=== PATIENT | male | born 1960 | race Caucasian/White ===

== ENCOUNTER → 2020-02-11 | Outpatient (CLI) | payer OTHER | END | disposition home or self-care (01) | LOC: PLD 08:06 → LAB SHORT 08:06 | DX: B35.1 Tinea unguium (principal); L57.0 Actinic keratosis | CPT/HCPCS: 88305; 88312 ==

== ENCOUNTER 2020-07-25 08:12 | Emergency (ER) | payer OTHER ==
[~2020-07-25] VITALS: Ht 172.7 cm; Wt 109.3 kg
[2020-07-25 09:21] LABS: BASOPHILS ABSOLUTE AUTO 0.06 K/mm3 (0.00-0.23); BASOPHILS PERCENT AUTO 1 % (0-2); EOSINOPHILS PERCENT AUTO 2 % (0-6); Hematocrit 44.1 % (37.0-53.0); Hemoglobin 14.1 g/dL (13.5-17.5); IMMATURE GRAN ABSOLUTE AUTO 0.04 K/mm3 (0.00-0.10); IMMATURE GRAN PERCENT AUTO 0 % (0-1); LYMPHOCYTES ABSOLUTE AUTO 1.62 K/mm3 (0.84-5.20); LYMPHOCYTES PERCENT AUTO 12 % (21-46); MONOCYTES ABSOLUTE AUTO 0.71 K/mm3 (0.16-1.47); MONOCYTES PERCENT AUTO 5 % (4-13); Mean Corpuscular HGB 29.8 pg (26.0-34.0); Mean Corpuscular Volume 93 fL (80-100); Mean Platelet Volume 10.7 fL (9.1-12.4); NEUTROPHILS ABSOLUTE AUTO 10.67 K/mm3 (1.96-9.15); NEUTROPHILS PERCENT AUTO 80 % (41-73); Platelet Count 339 K/mm3 (150-400); RDW Coefficient Variation 13.2 % (11.7-14.2); RDW Standard Deviation 45.1 fL (35.1-46.3); Red Blood Cell Count 4.73 M/mm3 (4.30-5.90)
[2020-07-25 09:42] LABS: Alanine Aminotransfer (ALT/SGP 49 U/L (12-78); Albumin, Blood 3.8 g/dL (3.4-5.0); Albumin/Globulin Ratio 1.1 (0.8-1.8); Alk Phos 134 U/L (50-136); Anion Gap 4 mmol/L (6-16); Aspartate Aminotrans (AST/SGOT 20 U/L (12-37); Bilirubin, Total 0.6 mg/dL (0.1-1.0); Blood Urea Nitrogen 14 mg/dL (8-24); Bun/Creatinine Ratio 15.3 (12.0-20.0); CO2, Blood 30 mmol/L (21-32); Chloride, Blood 108 mmol/L (98-108); Creatinine, Blood 0.91 mg/dL (0.60-1.20); Globulin, Blood 3.5 g/dL (2.2-4.0); Glomerular Filtration Rate >60 (60-); Glucose, Blood 117 mg/dL (70-99); Potassium, Blood 4.6 mmol/L (3.5-5.5); Sodium, Blood 142 mmol/L (136-145); Total Protein, Blood 7.3 g/dL (6.4-8.2); Troponin I 0.032 ng/mL (0.000-0.040)
== END 2020-07-25 09:56 | disposition home or self-care (01) ==
LOC: ER 08:12
PROVIDERS: Emergency Medicine
DX: J44.1 Chronic obstructive pulmonary disease with (acute) exacerbation (principal); I10 Essential (primary) hypertension; E66.9 Obesity, unspecified
CPT/HCPCS: 36415; 71045; 80053; 83880; 84484; 85025; 93005; 93010; 99285-25; J1940

== ENCOUNTER 2020-10-26 09:07 | Day surgery (SDC) | payer OTHER ==
[~2020-10-26] VITALS: Ht 175.3 cm; Wt 111.0 kg
[~2020-10-26 09:07] MED LIST: CARV6.25 PO; FURO40 PO; LISI20 PO
--- NOTE | 2020-10-26 12:50 | NUR ---
[facility]. A&O. right radial site soft and nontender. c/o sorness of right arm, better than during procedure
--- NOTE | 2020-10-26 16:15 | NUR ---
PATIENT VERBALIZED UNDERSTANDING OF DISCHARGE INSTRUCTIONS AND PRECAUTIONS. AMBULATED TO REST ROOM INDEPENDENTLY. TR BAND REMOVED. SITE SOFT AND NONTENDER. CLOTH DOT DRESSING PLACED. WRIST BOARD IN PLACE. ARM SLING IN PLACE. PATIENT TRANSFERRED TO WAITING CAR FOR RIDE HOME VIA WHEELCHAIR.
[2021-01-19] MEDS ORDERED: FLUT1DIS2 INH (11:20)
[2021-01-19] MEDS ORDERED: TIOT18 INH (11:20)
[2021-01-19] MEDS ORDERED: CYCL10 PO (11:20)
[2021-01-19] MEDS ORDERED: PRED1 (11:20)
[2021-01-19] MEDS ORDERED: FURO20 PO (11:21)
== END 2020-10-26 16:15 | disposition home or self-care (01) ==
LOC: MHTC 09:07
DX: I50.9 Heart failure, unspecified (principal); I20.9 Angina pectoris, unspecified; Z88.6 Allergy status to analgesic agent
CPT/HCPCS: 76937; 93005; 93010; 93460; 99152; 99153; C1769; C1894; J1644; J2250; J3010; J7030; J7050; Q9967

== ENCOUNTER 2021-01-19 12:09 | Inpatient (IN) | payer OTHER, MEDICARE ==
[~2021-01-19] VITALS: Ht 172.7 cm; Wt 108.0 kg
[~2021-01-19 12:09] MED LIST changes: +CYCL10 PO; +FLUT1DIS2 INH; +FURO20 PO; +PRED1; +TIOT18 INH
[2021-01-19 13:43] LABS: BASOPHILS ABSOLUTE AUTO 0.09 K/mm3 (0.00-0.23); BASOPHILS PERCENT AUTO 1 % (0-2); EOSINOPHILS PERCENT AUTO 1 % (0-6); Hematocrit 43.8 % (37.0-53.0); Hemoglobin 14.5 g/dL (13.5-17.5); IMMATURE GRAN ABSOLUTE AUTO 0.11 K/mm3 (0.00-0.10); IMMATURE GRAN PERCENT AUTO 1 % (0-1); LYMPHOCYTES ABSOLUTE AUTO 3.89 K/mm3 (0.84-5.20); LYMPHOCYTES PERCENT AUTO 20 % (21-46); MONOCYTES ABSOLUTE AUTO 1.14 K/mm3 (0.16-1.47); MONOCYTES PERCENT AUTO 6 % (4-13); Mean Corpuscular HGB 30.3 pg (26.0-34.0); Mean Corpuscular HGB Conc 33.1 g/dL (31.5-36.5); Mean Corpuscular Volume 92 fL (80-100); Mean Platelet Volume 10.6 fL (9.1-12.4); NEUTROPHILS ABSOLUTE AUTO 14.38 K/mm3 (1.96-9.15); NEUTROPHILS PERCENT AUTO 73 % (41-73); Platelet Count 368 K/mm3 (150-400); RDW Coefficient Variation 14.9 % (11.7-14.2); RDW Standard Deviation 49.9 fL (35.1-46.3); Red Blood Cell Count 4.78 M/mm3 (4.30-5.90); White Blood Cell Count 19.71 K/mm3 (4.00-11.30)
[2021-01-19 14:13] LABS: Alanine Aminotransfer (ALT/SGP 57 U/L (12-78); Albumin, Blood 3.6 g/dL (3.4-5.0); Albumin/Globulin Ratio 1.1 (0.8-1.8); Alk Phos 106 U/L (50-136); Anion Gap 6 mmol/L (6-16); Aspartate Aminotrans (AST/SGOT 29 U/L (12-37); Bilirubin, Total 0.7 mg/dL (0.1-1.0); Blood Urea Nitrogen 28 mg/dL (8-24); CO2, Blood 25 mmol/L (21-32); Calcium, Blood 8.7 mg/dL (8.5-10.1); Chloride, Blood 110 mmol/L (98-108); Creatinine, Blood 1.22 mg/dL (0.60-1.20); Globulin, Blood 3.2 g/dL (2.2-4.0); Glomerular Filtration Rate >60 (60-); Glucose, Blood 112 mg/dL (70-99); Magnesium, Blood 2.8 mg/dL (1.6-2.4); Sodium, Blood 141 mmol/L (136-145); Total Protein, Blood 6.8 g/dL (6.4-8.2); Troponin I <0.015 ng/mL (0.000-0.040)
[2021-01-19] MEDS ORDERED: CARVEDILOL6.25 MG PO (15:26)
[2021-01-19] MEDS ORDERED: FLUTICASONE-SA1 EAC9 INH (15:27)
--- NOTE | 2021-01-19 17:50 | NUR ---
PT ARRIVED IN THE UNIT VIA STRETCHER FROM ERD REPORT RECEIVED FORTINO MALIK RN, PT IS HERE FOR NEW ONSET OF AFIB RVR, PT WAS STARTED ON AMIODARONE GTT WITH NO BOLUS, VITALS HRR AFIB 120'S, BP SYSTOLIC 115'S, SATS ABOVE 95% ON RA, AFEBRILE. PT IS A SBA ASSISTS FOR TRANSFERS WAS ABLE TO TRANSFER FROM STRETCHER TO BED WITH NO ISSUES. PT DENIES ANY CHEST PAIN/PRESSURE, HAS SOME CHRONIC BACK PAIN AND IS FOR MRI PROCEDURE TO BE SCHEDULED. NO ISSUES REPORTED AT THIS TIME, PT RESTING IN BED, ALERT AND COHERENT AT BASELINE, ABLE TO MAKE NEEDS KNOWN, CALL LIGHTS IN REACH WILL MONITOR
--- NOTE | 2021-01-19 22:24 | NUR ---
THIS LN DECREASE AMIOADARONE GTT 33.3ML/HR TO 16.7ML/HR PER PROTOCOL AND PT. ORDERS AT 10:22PM 6HRS AFTER INITIATION.
[2021-01-20 03:50] LABS: BASOPHILS ABSOLUTE AUTO 0.08 K/mm3 (0.00-0.23); BASOPHILS PERCENT AUTO 1 % (0-2); EOSINOPHILS ABSOLUTE AUTO 0.16 K/mm3 (0.00-0.68); EOSINOPHILS PERCENT AUTO 1 % (0-6); Hematocrit 46.5 % (37.0-53.0); Hemoglobin 15.1 g/dL (13.5-17.5); Mean Corpuscular HGB 30.6 pg (26.0-34.0); Mean Corpuscular HGB Conc 32.5 g/dL (31.5-36.5); Mean Corpuscular Volume 94 fL (80-100); Mean Platelet Volume 10.8 fL (9.1-12.4); Platelet Count 344 K/mm3 (150-400); RDW Coefficient Variation 15.1 % (11.7-14.2); RDW Standard Deviation 51.4 fL (35.1-46.3); Red Blood Cell Count 4.94 M/mm3 (4.30-5.90)
[2021-01-20 03:54] LABS: IMMATURE GRAN PERCENT AUTO 1 % (0-1); LYMPHOCYTES ABSOLUTE AUTO 4.17 K/mm3 (0.84-5.20); LYMPHOCYTES PERCENT AUTO 27 % (21-46); MONOCYTES ABSOLUTE AUTO 0.81 K/mm3 (0.16-1.47); MONOCYTES PERCENT AUTO 5 % (4-13); NEUTROPHILS ABSOLUTE AUTO 10.18 K/mm3 (1.96-9.15); NEUTROPHILS PERCENT AUTO 66 % (41-73)
[2021-01-20 04:10] LABS: Albumin, Blood 3.7 g/dL (3.4-5.0); Albumin/Globulin Ratio 1.1 (0.8-1.8); Bilirubin, Total 0.8 mg/dL (0.1-1.0); Bun/Creatinine Ratio 23.5 (12.0-20.0); Calcium, Blood 8.7 mg/dL (8.5-10.1); Creatinine, Blood 1.36 mg/dL (0.60-1.20); Globulin, Blood 3.5 g/dL (2.2-4.0); Total Protein, Blood 7.2 g/dL (6.4-8.2)
--- NOTE | 2021-01-20 06:17 | NUR ---
PATIENT ARRIVED FROM ED AT 2305, AT BEDSIDE, ABLE TO MAKE NEEDS KNOW, ALERT ORIENTATED SLOW RESPONSES, PATIENT STATED SHE HAD SMOKED HASH PRIOR TO COMING TO HOSPITAL TO HELP WITH HER PAIN, AROUND 0200 PATIENT WAS ABLE TO URINATE WITH QUEING VIA BEDSIDE COMMODE, URINE SAMPLE WAS SENT TO LAB. NORMAL SALINE RUNNING 75ML/HR, PATIENT RESTING IN BED.
--- NOTE | 2021-01-20 06:25 | NUR ---
PATIENT SLEPT MOST OF THE NIGHT, AMIO GTT WAS DECREASE PER NOTE AROUND 1022PM, PATIENT HR REMAINED 120-140'S, CPAP PROVIDED BY RT BUT PATIENT KEPT TAKING IT OFF NOT TOLERATING IT WELL, MAYBE BENEFICIAL IF PATIENT BROUGHT IN HOME CPAP, STATED THE MASK WASN'T COMFORTABLE FOR HIM, HE C/O OF BEING FEARFUL THAT HE IS NOT BREATHING OR FEELING LIKE HE CAN'T BREATHE, SATURATIONS REMAINED IN THE 92-96% RANGE.
--- NOTE | 2021-01-20 16:42 | NUR ---
PT SUMMARY: PT WAS OFF OF AMIO GTT AT 1600 PT STARTED ON PO AMIO 400MG. PT'S HR REMAINED AFIB GOES UP TO 140'S WITH EXERTION 110'S AT REST, BP SYSTOLIC 120'S, SATS ABOVE 94% ON RA, REFUSED TO WEAR CPAP WHEN SLEEPING, AFEBRILE. PT AHS BEEN SLEEPING/RESTING MOST OF THE SHIFT, WAS ABLE TO WORK WITH PT THIS AM, PAIN TOLERABLE WITH ICE PACK. MRI (BACK) PROCEDURE PENDING WAS SCHEDULED AT 1730. NO ISSUES AT THIS TIME. PT WAS ABLE TO AMBULATE TO THE BATHROOM WITH NO ASSISTANCE NEEDED. ABLE TO MAKE NEEDS KNOWN, WILL MONITOR
[2021-01-21 04:12] LABS: BASOPHILS ABSOLUTE AUTO 0.07 K/mm3 (0.00-0.23); BASOPHILS PERCENT AUTO 1 % (0-2); EOSINOPHILS ABSOLUTE AUTO 0.16 K/mm3 (0.00-0.68); EOSINOPHILS PERCENT AUTO 1 % (0-6); Hematocrit 41.1 % (37.0-53.0); Hemoglobin 13.7 g/dL (13.5-17.5); IMMATURE GRAN ABSOLUTE AUTO 0.08 K/mm3 (0.00-0.10); IMMATURE GRAN PERCENT AUTO 1 % (0-1); LYMPHOCYTES PERCENT AUTO 26 % (21-46); MONOCYTES ABSOLUTE AUTO 0.89 K/mm3 (0.16-1.47); MONOCYTES PERCENT AUTO 8 % (4-13); Mean Corpuscular HGB 30.2 pg (26.0-34.0); Mean Corpuscular HGB Conc 33.3 g/dL (31.5-36.5); Mean Corpuscular Volume 91 fL (80-100); NEUTROPHILS ABSOLUTE AUTO 7.21 K/mm3 (1.96-9.15); NEUTROPHILS PERCENT AUTO 64 % (41-73); Platelet Count 273 K/mm3 (150-400); RDW Coefficient Variation 14.7 % (11.7-14.2); RDW Standard Deviation 48.6 fL (35.1-46.3); Red Blood Cell Count 4.53 M/mm3 (4.30-5.90); White Blood Cell Count 11.31 K/mm3 (4.00-11.30)
[2021-01-21 05:08] LABS: Bun/Creatinine Ratio 22.6 (12.0-20.0); Calcium, Blood 8.6 mg/dL (8.5-10.1); Creatinine, Blood 1.37 mg/dL (0.60-1.20); Potassium, Blood 3.8 mmol/L (3.5-5.5)
--- NOTE | 2021-01-21 18:23 | NUR ---
SHIFT SUMMARY NO ACUTE EVENTS THIS SHIFT. PATIENT ALERT AND ORIENTED, COOPERATIVE WITH CARE. PATIENT REMAINS IN A FIB THIS SHIFT, AT START OF SHIFT HR IN 140S. INCREASE IN COREG DOSAGE STARTED THIS MORNING. BY END OF SHIFT PATIENT'S HR IN 100S. PATIENT COMPLAINED OF BACK PAIN THIS SHIFT, PROVIDED ICE PACK TO PATIENT SATISTFACTION. PATIENT ENDORSED RELIEF WITH SELF-REPOSITIONING WELL. ON ROOM AIR, ABLE TO AMBULATE SAFELY TO BATHROOM INDEPENDENTLY.
--- NOTE | 2021-01-22 04:28 | NUR ---
SHIFT SUMMARY PATIENT ALERT AND ORIENTED X4. PATIENT SLEPT MAJORITY OF THE NIGHT. BP STABLE. HR RANGING IN 120'S-130'S AFIB. PT TOLERATED CPAP WELL WHILE ASLEEP. PATIENT DENIES CHEST PAIN. PATIENT CONTINUES TO EXPERIENCE CHRONIC BACK PAIN, MEDICATED PER EMAR ACUTE CHANGES HAVE OCCURED. WILL CONTINUE TO MONITOR UNTIL END OF SHIFT.
[2021-01-22 05:10] LABS: Bun/Creatinine Ratio 24.8 (12.0-20.0); Calcium, Blood 8.9 mg/dL (8.5-10.1); Creatinine, Blood 1.37 mg/dL (0.60-1.20); Magnesium, Blood 2.6 mg/dL (1.6-2.4); Potassium, Blood 4.3 mmol/L (3.5-5.5)
--- NOTE | 2021-01-22 06:21 | NUR ---
RN STUDENT THIS RN HAS REVIEWED THE STUDENT RNS NOTES, ASSESMENTS, AND CHARTING AND AGREE WITH ALL.
[2021-01-22] MEDS ORDERED: CARV25 PO (12:17)
[2021-01-22] MEDS ORDERED: AMIODARONE HCL400 M2 PO (12:18)
[2021-01-22] MEDS ORDERED: XARELTO20 MG PO (12:19)
[2021-01-22] MEDS ORDERED: KLOR-CON 1010 ME1 PO (12:19)
[2021-01-22] MEDS ORDERED: TRAM50 PO (12:20)
--- NOTE | 2021-01-22 13:25 | NUR ---
PATIENT PROVIDED DISCHARGE INFO REGARDING FOLLOW UP PLANS, REASONS TO RETURN TO THE HOSPITAL, AND MEDICATION INFORMATION. PATIENT ENDORSED UNDERSTANDING, NO SIGNS OF ACUTE DISTRESS, VSS.
== END 2021-01-22 13:32 | disposition home or self-care (01) | DRG 309 ==
LOC: ER 12:09 → PCU 12:10
PROVIDERS: Emergency Medicine; Internal Medicine; ADMIT Internal Medicine
DX: I48.91 Unspecified atrial fibrillation (principal); I50.22 Chronic systolic (congestive) heart failure; N17.9 Acute kidney failure, unspecified; I13.0 Hypertensive heart and chronic kidney disease with heart failure and stage 1 through stage 4 chronic kidney disease, or unspecified chronic kidney disease; I42.9 Cardiomyopathy, unspecified; N18.30 Chronic kidney disease, stage 3 unspecified; E66.9 Obesity, unspecified; Z68.36 Body mass index [BMI] 36.0-36.9, adult; E87.6 Hypokalemia; M51.14 Intervertebral disc disorders with radiculopathy, thoracic region; J44.9 Chronic obstructive pulmonary disease, unspecified; G47.33 Obstructive sleep apnea (adult) (pediatric); Z98.890 Other specified postprocedural states; Z88.8 Allergy status to other drugs, medicaments and biological substances; Z87.891 Personal history of nicotine dependence; Z79.899 Other long term (current) drug therapy
CPT/HCPCS: 36415; 71046; 72148; 80048; 80053; 83735; 83880; 84443; 84484; 85025; 93005; 93010; 94640; 94660; 94762; 96365; 96375; 96376; 97110; 97116; 97162; 97165; 97530; 97535; 99285-25; A9270; G0378; J0282; J7060

== ENCOUNTER 2021-04-26 09:20 | Emergency (ER) | payer OTHER ==
[~2021-04-26] VITALS: Ht 172.7 cm; Wt 95.2 kg
[~2021-04-26 09:20] MED LIST changes: +AMIODARONE HCL400 M2 PO; +CARV25 PO; +CARVEDILOL6.25 MG PO; +FLUTICASONE-SA1 EAC9 INH; +KLOR-CON 1010 ME1 PO; +TRAM50 PO; +XARELTO20 MG PO
[2021-04-26 10:02] LABS: BASOPHILS PERCENT AUTO 1 % (0-2); EOSINOPHILS ABSOLUTE AUTO 0.32 K/mm3 (0.00-0.68); EOSINOPHILS PERCENT AUTO 3 % (0-6); Hemoglobin 16.4 g/dL (13.5-17.5); IMMATURE GRAN ABSOLUTE AUTO 0.05 K/mm3 (0.00-0.10); IMMATURE GRAN PERCENT AUTO 0 % (0-1); LYMPHOCYTES ABSOLUTE AUTO 1.98 K/mm3 (0.84-5.20); LYMPHOCYTES PERCENT AUTO 18 % (21-46); MONOCYTES ABSOLUTE AUTO 0.99 K/mm3 (0.16-1.47); MONOCYTES PERCENT AUTO 9 % (4-13); Mean Corpuscular HGB 30.7 pg (26.0-34.0); Mean Corpuscular HGB Conc 33.5 g/dL (31.5-36.5); Mean Corpuscular Volume 92 fL (80-100); NEUTROPHILS ABSOLUTE AUTO 7.84 K/mm3 (1.96-9.15); NEUTROPHILS PERCENT AUTO 70 % (41-73); Platelet Count 418 K/mm3 (150-400); RDW Coefficient Variation 13.8 % (11.7-14.2); RDW Standard Deviation 46.8 fL (35.1-46.3); Red Blood Cell Count 5.35 M/mm3 (4.30-5.90); White Blood Cell Count 11.28 K/mm3 (4.00-11.30)
[2021-04-26 10:14] LABS: Albumin, Blood 3.6 g/dL (3.4-5.0); Albumin/Globulin Ratio 0.9 (0.8-1.8); Bilirubin, Total 0.9 mg/dL (0.1-1.0); Bun/Creatinine Ratio 19.7 (12.0-20.0); Calcium, Blood 9.5 mg/dL (8.5-10.1); Creatinine, Blood 1.27 mg/dL (0.60-1.20); Globulin, Blood 3.9 g/dL (2.2-4.0); Potassium, Blood 4.6 mmol/L (3.5-5.5); Total Protein, Blood 7.5 g/dL (6.4-8.2); Troponin I 0.015 ng/mL (0.000-0.040)
[2021-04-26] MEDS ORDERED: ZESTRIL40 M1 PO (13:20)
== END 2021-04-26 16:53 | disposition home or self-care (01) ==
LOC: ER 09:20
PROVIDERS: Physician Assistant
DX: R07.89 Other chest pain (principal); K86.9 Disease of pancreas, unspecified; I11.0 Hypertensive heart disease with heart failure; I50.9 Heart failure, unspecified; I48.91 Unspecified atrial fibrillation; J44.9 Chronic obstructive pulmonary disease, unspecified; G47.33 Obstructive sleep apnea (adult) (pediatric); R74.8 Abnormal levels of other serum enzymes; R10.13 Epigastric pain; Z99.89 Dependence on other enabling machines and devices; Z88.5 Allergy status to narcotic agent; Z79.899 Other long term (current) drug therapy
CPT/HCPCS: 71046; 74177; 80053; 82378; 83690; 83880; 84484; 85025; 86301; 93005; 93010; 99284-25; C8929; Q9957; Q9967

== ENCOUNTER 2021-06-28 11:48 | Inpatient (IN) | payer OTHER ==
[~2021-06-28] VITALS: Ht 172.7 cm; Wt 90.3 kg
[~2021-06-28 11:48] MED LIST changes: +ZESTRIL40 M1 PO
[2021-06-28 12:17] LABS: BASOPHILS ABSOLUTE AUTO 0.08 K/mm3 (0.00-0.23); BASOPHILS PERCENT AUTO 1 % (0-2); EOSINOPHILS PERCENT AUTO 2 % (0-6); Hematocrit 45.2 % (37.0-53.0); Hemoglobin 15.2 g/dL (13.5-17.5); IMMATURE GRAN ABSOLUTE AUTO 0.09 K/mm3 (0.00-0.10); IMMATURE GRAN PERCENT AUTO 1 % (0-1); LYMPHOCYTES ABSOLUTE AUTO 1.71 K/mm3 (0.84-5.20); LYMPHOCYTES PERCENT AUTO 14 % (21-46); MONOCYTES ABSOLUTE AUTO 0.81 K/mm3 (0.16-1.47); MONOCYTES PERCENT AUTO 7 % (4-13); Mean Corpuscular HGB 30.8 pg (26.0-34.0); Mean Corpuscular HGB Conc 33.6 g/dL (31.5-36.5); Mean Corpuscular Volume 92 fL (80-100); Mean Platelet Volume 12.9 fL (9.1-12.4); NEUTROPHILS ABSOLUTE AUTO 9.58 K/mm3 (1.96-9.15); NEUTROPHILS PERCENT AUTO 77 % (41-73); Platelet Count 288 K/mm3 (150-400); RDW Coefficient Variation 14.2 % (11.7-14.2); RDW Standard Deviation 47.9 fL (35.1-46.3); Red Blood Cell Count 4.94 M/mm3 (4.30-5.90); White Blood Cell Count 12.47 K/mm3 (4.00-11.30)
[2021-06-28 12:36] LABS: Troponin I <0.015 ng/mL (0.000-0.040)
[2021-06-28 12:37] LABS: Alanine Aminotransfer (ALT/SGP 81 U/L (12-78); Albumin, Blood 2.7 g/dL (3.4-5.0); Albumin/Globulin Ratio 0.7 (0.8-1.8); Alk Phos 678 U/L (50-136); Anion Gap 10 mmol/L (6-16); Aspartate Aminotrans (AST/SGOT 41 U/L (12-37); Bilirubin, Total 7.1 mg/dL (0.1-1.0); Blood Urea Nitrogen 32 mg/dL (8-24); Bun/Creatinine Ratio 30.8 (12.0-20.0); CO2, Blood 23 mmol/L (21-32); Calcium, Blood 9.2 mg/dL (8.5-10.1); Chloride, Blood 91 mmol/L (98-108); Creatinine, Blood 1.04 mg/dL (0.60-1.20); Globulin, Blood 4.1 g/dL (2.2-4.0); Glomerular Filtration Rate >60 (60-); Glucose, Blood 657 mg/dL (70-99); Potassium, Blood 4.2 mmol/L (3.5-5.5); Sodium, Blood 124 mmol/L (136-145); Total Protein, Blood 6.8 g/dL (6.4-8.2)
[2021-06-28] MEDS ORDERED: ENTRESTO 24 MG1 EAC3 PO (13:07)
[2021-06-28] MEDS ORDERED: LANOXIN PO (13:07)
[2021-06-28] MEDS ORDERED: METO25ER PO (13:08)
[2021-06-28] MEDS ORDERED: METO50ER PO (15:46)
[2021-06-28 15:58] LABS: Digoxin (Lanoxin) 0.44 ug/mL (0.80-2.00)
[2021-06-28 16:23] LABS: SARS-Cov-2 (COVID-19) PCR, MMC NEGATIVE (NEGATIVE)
--- NOTE | 2021-06-28 16:30 | NUR ---
Pt in for pain and nausea. He has not taken his medications in two weeks. He has been moslty bed bound. Pt in afib with rvr. he is having chest pain and abdominal pain. He is nauseated, he denies headache states he sleeps all the time. Review of ER physicians plan to get diagnositics and contact oncology and interventionalist. Pt startted sobbing and stated it is not good. Therputic conversation encouraged expressions of stress. Asked who his support system was. Stated his father and brother and sister. Stated his brother is a nurse. Will follow up with plan of care and interventions pt should be DNR.
--- NOTE | 2021-06-28 18:19 | NUR ---
SHIFT SUMMARY PT ARRIVED FROM ED VIA BED. PT WAS ORIENTED TO ROOM AND UNIT. PT STATED NO C/O PAIN OR DISCOMFORT. PT ASKED SEVERAL QUESTIONS ABOUT CURRENT ILLNESS AND TREATMENT PROCESS THAT WERE ADDRESSED AND WILL BE REINFORCED. PT IS CURRENTLY RESTING IN BED AND DENIES PAIN/DISCOMFORT. SINCE ARRIVING, VITAL SIGNS HAVE BEEN STABLE, NO ACUTE CHANGES.
[2021-06-28 21:15] LABS: Glucose, Blood 479 mg/dL (70-99)
[2021-06-29 03:57] LABS: BASOPHILS ABSOLUTE AUTO 0.09 K/mm3 (0.00-0.23); BASOPHILS PERCENT AUTO 1 % (0-2); EOSINOPHILS PERCENT AUTO 2 % (0-6); Hematocrit 46.7 % (37.0-53.0); Hemoglobin 15.8 g/dL (13.5-17.5); IMMATURE GRAN PERCENT AUTO 1 % (0-1); LYMPHOCYTES ABSOLUTE AUTO 2.44 K/mm3 (0.84-5.20); LYMPHOCYTES PERCENT AUTO 19 % (21-46); MONOCYTES ABSOLUTE AUTO 1.11 K/mm3 (0.16-1.47); MONOCYTES PERCENT AUTO 9 % (4-13); Mean Corpuscular HGB 30.7 pg (26.0-34.0); Mean Corpuscular HGB Conc 33.8 g/dL (31.5-36.5); Mean Corpuscular Volume 91 fL (80-100); Mean Platelet Volume 12.6 fL (9.1-12.4); NEUTROPHILS ABSOLUTE AUTO 8.79 K/mm3 (1.96-9.15); NEUTROPHILS PERCENT AUTO 69 % (41-73); Platelet Count 260 K/mm3 (150-400); RDW Standard Deviation 46.7 fL (35.1-46.3); Red Blood Cell Count 5.14 M/mm3 (4.30-5.90); White Blood Cell Count 12.83 K/mm3 (4.00-11.30)
[2021-06-29 04:11] LABS: International Normalized Ratio 1.15
[2021-06-29 04:15] LABS: Albumin, Blood 2.6 g/dL (3.4-5.0); Albumin/Globulin Ratio 0.6 (0.8-1.8); Bilirubin, Total 7.7 mg/dL (0.1-1.0); Bun/Creatinine Ratio 27.1 (12.0-20.0); Calcium, Blood 9.4 mg/dL (8.5-10.1); Creatinine, Blood 1.33 mg/dL (0.60-1.20); Globulin, Blood 4.4 g/dL (2.2-4.0); Magnesium, Blood 2.6 mg/dL (1.6-2.4); Potassium, Blood 3.8 mmol/L (3.5-5.5)
--- NOTE | 2021-06-29 06:11 | NUR ---
SHIFT SUMMARY PT A+OX4. PLEASANT AND COOPERATIVE TO CARE. TELE READS AFIB 110'S AND 120'S. HIGH CBGS EARLY IN THE EVENING IN THE 400'S. PROVIDER NOTIFIED AND INSULIN CHANGED TO HIGH SLIDING SCALE. 139 MOST RECENT CBG. ON RA SATS OVER 95%. BP STABLE. VOIDS WITH BEDSIDE URINAL. C/O 8/10 EPIGASTRIC PAIN. MANAGED PER EMAR. PT LEFT IN BED RESTING WITH CALL ALARM AT SIDE.
--- NOTE | 2021-06-29 14:20 | NUR ---
[facility] case conference with PCU clinical account executive. Pt awaiting procedure for possible stenting per Dr Velásquez this afternoon. [facility] to cont to follow, offer support, s/s mgmt, advanced care planning conversations to pt/family.
--- NOTE | 2021-06-29 14:41 | NUR ---
PT TRANSPORTED TO [facility] VIA BED.
--- NOTE | 2021-06-29 15:00 | NUR ---
PT WAS RETURNED TO ROOM FROM [facility]ING DIVISION SUPERINTENDENT, TEAM WILL RETURN AT A LATER TIME TO TRANSPORT PT BACK TO PLANNING DIVISION SUPERINTENDENT FOR PROCEDURE.
--- NOTE | 2021-06-29 16:10 | NUR ---
PT IS BEING TRANSPORTED TO RESEARCH PROGRAMMER VIA BED.
[2021-06-29 16:25] LABS: International Normalized Ratio 1.08; Prothrombin Time Results 11.3 Sec (9.7-11.5)
--- NOTE | 2021-06-29 17:02 | NUR ---
SHIFT SUMMARY PT IS STILL OFF UNIT AT THIS TIME. PT HAS BEEN RESTING AND SLEEPING FOR THE MAJORITY OF THE DAY. PT C/O EPIGASTRIC PAIN WAS UNRELIEVED BY ORDERED MEDS, THE PROVIDER WAS MADE AWARE OF THIS AND ADJUSTED ORDERS ACCORDINGLY. PT STATED RELIEF OF PAIN UNDER NEW MEDICATION ORDERS. PT HAS BEEN UP INDEPENDENTLY IN ROOM TO USE THE RESTROOM AND TRANSFER TO CHAIR. PT HAS BEEN COOPERATIVE WITH CARE AND ASKED QUESTIONS CONCERNING THEIR CARE.
--- NOTE | 2021-06-29 18:24 | NUR ---
PT POST PROCEDURE PER REPORT FROM LAST LUND TO HOLD XARELTO DOSE TONIGHT PER DR PATTON AND RESTART TOMORROW.
--- NOTE | 2021-06-30 06:25 | NUR ---
SHIFT SUMMARY NO ACUTE CHANGES THIS SHIFT. PT ALERT AND ORIENTED, PLEASANT AND COOPERATIVE TO CARE. AFTER RETURN FROM SURGERY PATIENT WAS NAUSEOUS AND IN 8/10 EPIGASTRIC PAIN. NAUSEA RELIEVED PER EMAR. PAIN PERSISTS. DOCTOR NOTIFED AND Q2 FENTANYL ORDERED. PT ABLE TO PERFORM ADLS ON OWN. PT AFIB 110'S TO 120'S. EPISODE OF AFIB 140'S RELIEVED BY LOPRESSOR. SURGERY SITE C/D/I. WILL CONTINUE TO MONITOR UNTIL REPORT GIVEN TO DAYSHIFT ASHELY
[2021-06-30 09:01] LABS: Hematocrit 34.9 % (37.0-53.0); Hemoglobin 12.2 g/dL (13.5-17.5); Mean Corpuscular HGB 31.5 pg (26.0-34.0); Mean Corpuscular Volume 90 fL (80-100); Mean Platelet Volume 12.8 fL (9.1-12.4); Platelet Count 229 K/mm3 (150-400); RDW Coefficient Variation 14.3 % (11.7-14.2); RDW Standard Deviation 47.4 fL (35.1-46.3); Red Blood Cell Count 3.87 M/mm3 (4.30-5.90); White Blood Cell Count 11.92 K/mm3 (4.00-11.30)
[2021-06-30 09:21] LABS: Alanine Aminotransfer (ALT/SGP 76 U/L (12-78); Albumin, Blood 2.3 g/dL (3.4-5.0); Albumin/Globulin Ratio 0.7 (0.8-1.8); Alk Phos 482 U/L (50-136); Anion Gap 8 mmol/L (6-16); Aspartate Aminotrans (AST/SGOT 60 U/L (12-37); Bilirubin, Total 4.7 mg/dL (0.1-1.0); Blood Urea Nitrogen 34 mg/dL (8-24); Bun/Creatinine Ratio 29.3 (12.0-20.0); CO2, Blood 26 mmol/L (21-32); Calcium, Blood 8.7 mg/dL (8.5-10.1); Chloride, Blood 97 mmol/L (98-108); Creatinine, Blood 1.16 mg/dL (0.60-1.20); Globulin, Blood 3.5 g/dL (2.2-4.0); Glomerular Filtration Rate >60 (60-); Glucose, Blood 220 mg/dL (70-99); Potassium, Blood 3.7 mmol/L (3.5-5.5); Sodium, Blood 131 mmol/L (136-145); Total Protein, Blood 5.8 g/dL (6.4-8.2)
--- NOTE | 2021-06-30 10:07 | NUR ---
CARE ASSUMPTION: PT ALERT AND ORIENTED X4. DENIES NUMBNESS/TINGLING. PERRLA. ABLE TO MOVE ALL EXTREMITITES IN BED. ON ROOM AIR LUNGS SOUNDING CLEAR. TELE SHOWING AFIB WITH HR AVERAGING 110. STATES HE OCCASIONALLY HAS CHEST "TIGHTNESS" THAT HAS BEEN ON AND OFF FOR MONTHS. BP AND VITALS SIGNS STABLE. PPP. ABDOMEN DISTENDED, PER PATIENT NORMAL. COMPLAINS OF ABDOMINAL PAIN AND NAUSEA. MEDICATED PER EMAR WITH RELIEF. 2 ABDOMINAL SITES POST OP 06/29. RIGHT UPPER QUADRANT SITE C/D/I. RIGHT LOWER SITE LATERAL TO BELLY BUTTON WITH BRIGHT RED DRAINAGE, REMAINS UNCHANGED PER MAINTENANCE AIDE AND UNCHANGED THIS AM. PATHOLOGY CALLED FOR ORDERS ON SPECIMIN. CALL PLACED TO DR. PATTON. PT TOLERATING FOOD, ABLE TO EAT ALL OF BREAKFAST. IND TO BATHROOM. USING URINAL AT BEDSIDE. ABLE TO TURN AND MOVE SELF IN BED. WILL CONTINUE TO MONITOR.
--- NOTE | 2021-06-30 11:17 | NUR ---
CALL PLACED TO UPDATE PATIENTS FATHER, WITH PATIENT PERMISSION. VITAL SIGNS REMAIN STABLE.
--- NOTE | 2021-06-30 18:13 | NUR ---
SHIFT SUMMARY: NO ACUTE CHANGES. PAIN BETTER CONTROLLED WITH DILAUDID ON BOARD. NO CHANGES IN NEURO. TELE REMAINS AFIB WITH HR AVERAGING 100-110'S. DENIES CHEST PAIN. BP STABLE. ABDOMINAL SITE DRESSINGS REMAIN UNCHANGED. PATIENT ABLE TO MOVE SELF IN BED AND IND TO BATHROOM. EATING AND TOLERATING FOOD WELL. BLOOD SUGARS ACHS. DIABETIC EDUCATION STARTED AND TAKE HOME PACKET IN CHART FOR PATIENT. PATIENTS FATHER IN TO VISIT. UPDATED ON PLAN OF CARE. DR. HSIEH BY TO SEE PATIENT. WILL CONTINUE TO MONITOR AND REPORT OFF.
[2021-07-01 04:08] LABS: Hematocrit 33.4 % (37.0-53.0); Hemoglobin 11.4 g/dL (13.5-17.5); Mean Corpuscular HGB 31.5 pg (26.0-34.0); Mean Corpuscular HGB Conc 34.1 g/dL (31.5-36.5); Mean Corpuscular Volume 92 fL (80-100); Mean Platelet Volume 12.7 fL (9.1-12.4); Platelet Count 211 K/mm3 (150-400); RDW Coefficient Variation 14.6 % (11.7-14.2); RDW Standard Deviation 49.3 fL (35.1-46.3); Red Blood Cell Count 3.62 M/mm3 (4.30-5.90)
[2021-07-01 04:09] LABS: White Blood Cell Count 10.95 K/mm3 (4.00-11.30)
[2021-07-01 04:41] LABS: Alanine Aminotransfer (ALT/SGP 57 U/L (12-78); Albumin, Blood 2.2 g/dL (3.4-5.0); Albumin/Globulin Ratio 0.6 (0.8-1.8); Alk Phos 476 U/L (50-136); Anion Gap 5 mmol/L (6-16); Aspartate Aminotrans (AST/SGOT 39 U/L (12-37); Bilirubin, Total 4.2 mg/dL (0.1-1.0); Blood Urea Nitrogen 25 mg/dL (8-24); Bun/Creatinine Ratio 23.4 (12.0-20.0); CO2, Blood 28 mmol/L (21-32); Calcium, Blood 8.7 mg/dL (8.5-10.1); Chloride, Blood 101 mmol/L (98-108); Creatinine, Blood 1.07 mg/dL (0.60-1.20); Digoxin (Lanoxin) 0.55 ug/mL (0.80-2.00); Globulin, Blood 3.7 g/dL (2.2-4.0); Glomerular Filtration Rate >60 (60-); Glucose, Blood 200 mg/dL (70-99); Potassium, Blood 4.1 mmol/L (3.5-5.5); Sodium, Blood 134 mmol/L (136-145); Total Protein, Blood 5.9 g/dL (6.4-8.2)
--- NOTE | 2021-07-01 06:45 | NUR ---
SHIFT SUMMARY PT RESTED WELL THROUGH THE NIGHT. ALERT AND ORIENTED, ABLE TO MAKE NEEDS KNWON. COOPERATIVE WITH PLAN OF CARE. TELE AFIB - RATE CONTROLLED BEING IN 80-100'S. NO C/O CHEST PAIN. SATS >90% ON ROOM AIR. VOIDS TO URINAL. C/O SOME ABD PAIN FROM INCISIONAL SITES - PRN PAIN MEDS GIVEN - SEE EMAR. VSS. CALL LIGHT WITHIN REACH, BED IN LOWEST POSITION. WILL CONTINUE TO MONITOR.
[2021-07-01] MEDS ORDERED: HYDMOR4 PO (13:52)
[2021-07-01] MEDS ORDERED: SEMGLEE PE100 UNIT/1 (14:00)
[2021-07-01] MEDS ORDERED: HUMALOG KW100 UNIT/1 (14:01)
[2021-07-01] MEDS ORDERED: SENN187 PO (14:02)
[2021-07-01] MEDS ORDERED: DOCU100 PO (14:02)
[2021-07-01] MEDS ORDERED: MIRALAX17 GM (14:02)
--- NOTE | 2021-07-01 16:24 | NUR ---
CARE ASSUMPTION ASSUMED CARE OF PT @ APPROX 1500 AFTER DAY SHIFT SPRAY FOAM INSTALLER. PT A&O X4. PT MOANING & CRYING RESTLESSLY IN BED UPON ASSESSMENT. PT REPORTING PAIN 10/10 TO RUQ ABD "WHERE MY INCISION IS", PT STATING PAIN TO BE "WORST PAIN OF MY LIFE & I'VE HAD 12 BACK SURGERIES. I CAN HARDLY BREATHE. I CAN'T GET COMFORTABLE. I CAN ONLY LAY ON MY LEFT SIDE." PT FURTHER REPORTING PAIN FEELS LIKE "SOMEBODY PUNCHING ME THERE OVER & OVER." PT PREVIOUSLY MEDICATED BY UNIT MANAGER W/ PRN MELANI OWENS PER EMAR W/ PT REPORT OF NO IMPROVEMENT. CALL TO MD PATTON TO REPORT FINDINGS. MD PATTON W/ ORDER FOR ABD CT.
--- NOTE | 2021-07-01 16:49 | NUR ---
Charge nurse Gavin changed her mind, decided pt to stay in the hospital one more night here, as his pain is not controlled well enough this evening to go home. He recently had a dose of both dilaudid and fentanyl. I brought him a warm blanket. He thanked me, then rolled back onto his left side and said no more. I have attempted multiple times today to open a conversation with him today, but at no time did he engage, and his answers remain flat and short.
--- NOTE | 2021-07-01 17:30 | NUR ---
CT PT GONE TO CT BY MIKY AT THIS TIME.
--- NOTE | 2021-07-01 18:42 | NUR ---
TRANSFER TO MEDICAL PT BACK FROM CT. CT RESULTS REPORTED TO MD PATOTN. MD PATTON W/ NO NEW ORDERS AT THAT TIME. PT MEDICAL W/ TELE STATUS. A&O X4. VSS. PT REMAINS PAINFUL BUT REPORTS PAIN SOMEWHAT IMPROVED AFTER PRN IV FENTANYL, PO DILAUDID & PO TYLENOL PER EMAR. MONITOR SHOWS AFIB, HR 80's-110. SPO2 > 92% ON RA. REPORT GIVEN TO ACCEPTING MEDICAL FLOOR RN ASSUMING CARE OF PT UNTIL CONVERTING TECHNICIAN ARRIVAL. PT TAKEN TO RM 325 BY BED W/ BELONGINGS @ APPROX 1830.
--- NOTE | 2021-07-01 19:08 | NUR ---
PATIENT TRANSFERRED FROM PCU 15 TO ROOM 325, REPORT RECEIVED FROM ASHELY MCGINNIS. PATIENT ORIENTED TO ROOM AND USE OF CALL LIGHT. INSTRUCTED TO CALL FOR ASSISTANCE. DENIES ANY NEEDS AT THIS TIME. A-FIB ON TELE, RATE CONTROLLED.
--- NOTE | 2021-07-01 20:15 | NUR ---
DR PATTON CALLED ABOUT PT SYMPTOMS AND PAIN. ASKED TO HAVE HOSPITALIST CALL TO DISCUSS PLAN. HOSPITALIST CONTACTED AND GIVEN CELL NUMBER FOR DR PATTON.
--- NOTE | 2021-07-02 05:00 | NUR ---
DRIER OPERATOR HEAD SUMMARY ADMITTED FOR AFIB WITH RVR. PT IS FULL CODE. PLAN FOR DISCHARGE AFTER POST BILIARY STENT PLACEMENT PAIN IS MANAGED. PT HAD BLEEDING ON CAT SCAN AND HAS HAD 9/10 MID ABDOMINAL AND RUQ PAIN. PT MEDICATED FOR PAIN PER EMAR. DR PATTON SPOKE WITH HOSPITALIST AND MANGO MADDEN STARTING TODAY. NO OTHER CONCERNS THIS SHIFT.
[2021-07-02 05:08] LABS: Hematocrit 32.4 % (37.0-53.0); Hemoglobin 11.2 g/dL (13.5-17.5); Mean Corpuscular HGB Conc 34.6 g/dL (31.5-36.5); Mean Corpuscular Volume 93 fL (80-100); Platelet Count 217 K/mm3 (150-400); RDW Coefficient Variation 14.5 % (11.7-14.2); RDW Standard Deviation 49.6 fL (35.1-46.3)
[2021-07-02 05:32] LABS: Alanine Aminotransfer (ALT/SGP 47 U/L (12-78); Albumin, Blood 2.2 g/dL (3.4-5.0); Albumin/Globulin Ratio 0.6 (0.8-1.8); Alk Phos 429 U/L (50-136); Anion Gap 5 mmol/L (6-16); Aspartate Aminotrans (AST/SGOT 34 U/L (12-37); Bilirubin, Total 4.7 mg/dL (0.1-1.0); Blood Urea Nitrogen 16 mg/dL (8-24); Bun/Creatinine Ratio 20.8 (12.0-20.0); CO2, Blood 27 mmol/L (21-32); Calcium, Blood 8.6 mg/dL (8.5-10.1); Chloride, Blood 102 mmol/L (98-108); Creatinine, Blood 0.77 mg/dL (0.60-1.20); Globulin, Blood 3.7 g/dL (2.2-4.0); Glomerular Filtration Rate >60 (60-); Glucose, Blood 152 mg/dL (70-99); Sodium, Blood 134 mmol/L (136-145); Total Protein, Blood 5.9 g/dL (6.4-8.2)
--- NOTE | 2021-07-02 11:52 | NUR ---
DISCHARGE SUMMARY PATIENT IS ALERT AND ORIENTED X4. PATIENT WAS MEDICATED FOR PAIN PER EMAR. PATIENT WAS EDUCATED ON DIABETES INFORMATION AND INSULIN ADMINISTRATION. PATIENT VERBALIZED UNDERSTANDING. PATIENT WAS WHEELED OUT BY CARINA SYKES TO AWAITING FAMILY. NO ACUTE EVENTS THIS SHIFT
== END 2021-07-02 11:33 | disposition home or self-care (01) | DRG 444 ==
LOC: ER 11:48 → PCU 15:25 → MEDS 07-01 18:32
PROVIDERS: Emergency Medicine; Internal Medicine; Nurse Practitioner Acute Care; Radiology Diagnostic Radiology; ADMIT Internal Medicine
PROC: BF14YZZ Fluoroscopy of Gallbladder, Bile Ducts and Pancreatic Ducts using Other Contrast (ICD-10-PCS; principal; 2021-06-29)
PROC: 0F793DZ Dilation of Common Bile Duct with Intraluminal Device, Percutaneous Approach (ICD-10-PCS; 2021-06-29)
DX: K83.1 Obstruction of bile duct (principal); E43 Unspecified severe protein-calorie malnutrition; K66.1 Hemoperitoneum; K55.069 Acute infarction of intestine, part and extent unspecified; C25.9 Malignant neoplasm of pancreas, unspecified; I50.22 Chronic systolic (congestive) heart failure; I42.0 Dilated cardiomyopathy; E87.1 Hypo-osmolality and hyponatremia; I48.91 Unspecified atrial fibrillation; G47.33 Obstructive sleep apnea (adult) (pediatric); K59.00 Constipation, unspecified; I11.0 Hypertensive heart disease with heart failure; E78.5 Hyperlipidemia, unspecified; Z98.890 Other specified postprocedural states; Z79.899 Other long term (current) drug therapy; Z88.8 Allergy status to other drugs, medicaments and biological substances; E11.65 Type 2 diabetes mellitus with hyperglycemia; E78.00 Pure hypercholesterolemia, unspecified; Z68.26 Body mass index [BMI] 26.0-26.9, adult
CPT/HCPCS: 36415; 47539; 71045; 74160; 74177; 76998; 80053; 80162; 82947; 83036; 83735; 83880; 83930; 84300; 84484; 85025; 85027; 85610; 86301; 88305; 93005; 93010; 94640; 94660; 94664; 94760; 94762; 96374; 96375; 99285-25; A9270; C1725; C1751; C1769; C1876; C1887; C1894; J0690; J1170; J1644; J1815; J2250; J2270; J2405; J3010; J7030; J7040; J7050; Q9967; U0004

== ENCOUNTER 2021-07-06 02:48 | Day surgery (SDC) | payer OTHER ==
[~2021-07-06 02:48] MED LIST changes: +DOCU100 PO; +ENTRESTO 24 MG1 EAC3 PO; +HUMALOG KW100 UNIT/1; +HYDMOR4 PO; +LANOXIN PO; +METO25ER PO; +METO50ER PO; +MIRALAX17 GM; +SEMGLEE PE100 UNIT/1; +SENN187 PO
[2021-07-06] MEDS ORDERED: OXYC10TA19 PO (15:32)
== END 2021-07-06 15:42 | disposition home or self-care (01) ==
LOC: ATC 02:48
DX: C25.1 Malignant neoplasm of body of pancreas (principal); I11.0 Hypertensive heart disease with heart failure; I50.22 Chronic systolic (congestive) heart failure; I48.91 Unspecified atrial fibrillation; E78.5 Hyperlipidemia, unspecified; G47.33 Obstructive sleep apnea (adult) (pediatric); J44.9 Chronic obstructive pulmonary disease, unspecified; Z88.8 Allergy status to other drugs, medicaments and biological substances; Z79.01 Long term (current) use of anticoagulants; Z79.899 Other long term (current) drug therapy
CPT/HCPCS: 36569; 71045; C1751

== ENCOUNTER 2021-07-11 14:51 | Inpatient (IN) | payer OTHER ==
[~2021-07-11] VITALS: Ht 172.7 cm; Wt 93.7 kg
[~2021-07-11 14:51] MED LIST changes: +OXYC10TA19 PO
[2021-07-11 15:25] LABS: Calcium, Ionized (POC) 1.03 mmol/L (1.10-1.46); Chloride (POC) 97 mmol/L (98-108); Creatinine (POC) 1.2 mg/dL (0.8-1.3); Glucose (ISTAT POC) 220 mg/dL (70-99); Hemoglobin (POC) 9.9 g/dL (13.5-17.5); Potassium (POC) 3.8 mmol/L (3.5-5.5); Sodium (POC) 133 mmol/L (135-148); Total CO2 (POC) 24 mmol/L (21-32)
[2021-07-11 15:27] LABS: Source, Urine Catheter
[2021-07-11 15:32] LABS: Appearance, Urine Clear (Clear); Bilirubin, Urine Neg (Neg); Blood, Urine Neg (Neg); Color, Urine Amber (P-Yellow); Glucose Qualitative, Urine 2+ (Neg); Ketones, Urine Neg (Neg); Leukocyte Esterase, Urine 1+ (Neg); Nitrite, Urine Neg (Neg); Protein, Urine 2+ (Neg); Urobilinogen, Urine 2+ (Normal)
[2021-07-11 15:45] LABS: BASOPHILS ABSOLUTE AUTO 0.02 K/mm3 (0.00-0.23); BASOPHILS PERCENT AUTO 0 % (0-2); EOSINOPHILS ABSOLUTE AUTO 0.11 K/mm3 (0.00-0.68); EOSINOPHILS PERCENT AUTO 1 % (0-6); Hematocrit 30.9 % (37.0-53.0); IMMATURE GRAN ABSOLUTE AUTO 0.06 K/mm3 (0.00-0.10); IMMATURE GRAN PERCENT AUTO 1 % (0-1); LYMPHOCYTES ABSOLUTE AUTO 1.04 K/mm3 (0.84-5.20); LYMPHOCYTES PERCENT AUTO 12 % (21-46); MONOCYTES PERCENT AUTO 1 % (4-13); Mean Corpuscular HGB 31.5 pg (26.0-34.0); Mean Corpuscular HGB Conc 32.4 g/dL (31.5-36.5); Mean Corpuscular Volume 98 fL (80-100); Mean Platelet Volume 12.4 fL (9.1-12.4); NEUTROPHILS ABSOLUTE AUTO 7.71 K/mm3 (1.96-9.15); NEUTROPHILS PERCENT AUTO 85 % (41-73); Platelet Count 248 K/mm3 (150-400); RDW Coefficient Variation 14.5 % (11.7-14.2); RDW Standard Deviation 52.1 fL (35.1-46.3); Red Blood Cell Count 3.17 M/mm3 (4.30-5.90); White Blood Cell Count 9.04 K/mm3 (4.00-11.30)
[2021-07-11 15:54] LABS: Bacteria Few /hpf; Red Blood Cells, Urine 0-2 /hpf (0-2); Squamous Epithelial Cells Not Seen /hpf (Few); Transitional Epithelial Cells Rare /hpf (0-Rare)
[2021-07-11 16:02] LABS: Alanine Aminotransfer (ALT/SGP 106 U/L (12-78); Albumin, Blood 2.2 g/dL (3.4-5.0); Albumin/Globulin Ratio 0.5 (0.8-1.8); Alk Phos 321 U/L (50-136); Anion Gap 10 mmol/L (6-16); Aspartate Aminotrans (AST/SGOT 74 U/L (12-37); Bilirubin, Total 3.3 mg/dL (0.1-1.0); Blood Urea Nitrogen 26 mg/dL (8-24); Bun/Creatinine Ratio 22.6 (12.0-20.0); CO2, Blood 24 mmol/L (21-32); Calcium, Blood 8.9 mg/dL (8.5-10.1); Chloride, Blood 100 mmol/L (98-108); Creatinine, Blood 1.15 mg/dL (0.60-1.20); Globulin, Blood 4.4 g/dL (2.2-4.0); Glomerular Filtration Rate >60 (60-); Glucose, Blood 216 mg/dL (70-99); Potassium, Blood 3.9 mmol/L (3.5-5.5); Sodium, Blood 134 mmol/L (136-145); Total Protein, Blood 6.6 g/dL (6.4-8.2)
[2021-07-11 16:06] LABS: Prothrombin Time Results 10.5 Sec (9.7-11.5)
[2021-07-11 16:28] LABS: Influenza A, PCR NEGATIVE (NEGATIVE); Influenza B, PCR NEGATIVE (NEGATIVE); Resp Syncytial Virus, PCR NEGATIVE (NEGATIVE); SARS-Cov-2 (COVID-19) PCR, MMC NEGATIVE (NEGATIVE)
[2021-07-11 18:14] LABS: Digoxin (Lanoxin) 1.38 ug/mL (0.80-2.00)
[2021-07-11] MEDS ORDERED: DIGOX250 MC1 PO (18:23)
[2021-07-11] MEDS ORDERED: Colace100 MG PO (18:24)
[2021-07-11] MEDS ORDERED: FUROSEMIDE40 MG PO (18:25)
[2021-07-11] MEDS ORDERED: BASAGLAR K100 UNIT/3 SC (18:26)
[2021-07-11] MEDS ORDERED: ADMELOG SC (18:28)
[2021-07-11] MEDS ORDERED: METO50ER PO (18:29)
[2021-07-11] MEDS ORDERED: OXAYDO5 M1 PO (18:30)
[2021-07-11] MEDS ORDERED: MIRALAX17 G3 PO (18:31)
[2021-07-11] MEDS ORDERED: XARELTO10 M1 PO (18:32)
[2021-07-11] MEDS ORDERED: ENTRESTO 24 MG1 EAC2 PO (18:33)
[2021-07-11] MEDS ORDERED: SENN187 PO (18:35)
[2021-07-11] MEDS ORDERED: Spiriva Respimat INH (18:36)
[2021-07-12 04:18] LABS: Hematocrit 28.5 % (37.0-53.0); Hemoglobin 9.7 g/dL (13.5-17.5); Mean Corpuscular HGB 32.2 pg (26.0-34.0); Mean Corpuscular Volume 95 fL (80-100); Mean Platelet Volume 11.5 fL (9.1-12.4); Platelet Count 196 K/mm3 (150-400); RDW Coefficient Variation 14.3 % (11.7-14.2); RDW Standard Deviation 49.5 fL (35.1-46.3); Red Blood Cell Count 3.01 M/mm3 (4.30-5.90); White Blood Cell Count 5.15 K/mm3 (4.00-11.30)
[2021-07-12 04:38] LABS: Alanine Aminotransfer (ALT/SGP 85 U/L (12-78); Albumin, Blood 1.9 g/dL (3.4-5.0); Albumin/Globulin Ratio 0.5 (0.8-1.8); Alk Phos 298 U/L (50-136); Anion Gap 6 mmol/L (6-16); Aspartate Aminotrans (AST/SGOT 57 U/L (12-37); Bilirubin, Total 2.9 mg/dL (0.1-1.0); Blood Urea Nitrogen 27 mg/dL (8-24); Bun/Creatinine Ratio 24.1 (12.0-20.0); CO2, Blood 28 mmol/L (21-32); Calcium, Blood 8.5 mg/dL (8.5-10.1); Chloride, Blood 101 mmol/L (98-108); Creatinine, Blood 1.12 mg/dL (0.60-1.20); Globulin, Blood 4.1 g/dL (2.2-4.0); Glomerular Filtration Rate >60 (60-); Glucose, Blood 195 mg/dL (70-99); Magnesium, Blood 2.7 mg/dL (1.6-2.4); Potassium, Blood 4.7 mmol/L (3.5-5.5); Sodium, Blood 135 mmol/L (136-145); Troponin I 0.032 ng/mL (0.000-0.040)
--- NOTE | 2021-07-12 05:39 | NUR ---
SHIFT SUMMARY PT IS ALERT AND ORIENTED. THERE HAVE BEEN NO ACUTE CHANGES. PT'S VITALS HAVE BEEN STABLE AND IS ON 1L NC WITH SATS ABOVE 92%. PT DENIES CHEST PAIN OR SOB. PT REPORTS ABDOMINAL PAIN BUT WAS ABLE TO SLEEP T/O NIGHT. PT HAS CHAIREZ CATH AND IT IS DRAINING TO GRAVITY. PT REFUSED 2100 LACTULOSE AND WAS ABLE TO GET UP TO BSC AND HAVE A LARGE BM. CALL LIGHT IS WITHIN REACH.
--- NOTE | 2021-07-12 18:51 | NUR ---
Pt alert but very fatigued and in great discomfort from abdominal preassure and pain. Requested dose of reglan pt to get lactulose enema. Pt started dhemo therpay next dose due on monday. Father at bedside gertrude buckleym with pt divering him and coaching him to relax his mucles he drivfted off for a little. Supportive vist with father he is exhaused and afraid will get chaplian for him. Suggest consult with scarlet to see if he can tolerate anymore treatment if not hospice for symptom relif. Suggest as scarlet if dexmethazone 4mg to start would be of benefit. suggest fentanly patch andand increased bowel protocol. Will assess him home situation. Before when I spoke with pt he just went home and went to bed and did not take any of him medication. He may need placement and/or father needs help careing for him. Pt brother is a nurse [employer] will try to speak with him. With pt symptoams and cardiac disesase may be best suited for hospice his suffering may be to great with treatment and father need support.
[2021-07-12 22:23] LABS: C DIFFICILE DNA NEGATIVE (Negative)
[2021-07-13 04:19] LABS: BASOPHILS ABSOLUTE AUTO 0.04 K/mm3 (0.00-0.23); BASOPHILS PERCENT AUTO 1 % (0-2); Hematocrit 26.4 % (37.0-53.0); LYMPHOCYTES ABSOLUTE AUTO 0.44 K/mm3 (0.84-5.20); LYMPHOCYTES PERCENT AUTO 8 % (21-46); MONOCYTES ABSOLUTE AUTO 0.11 K/mm3 (0.16-1.47); MONOCYTES PERCENT AUTO 2 % (4-13); Mean Corpuscular HGB Conc 34.1 g/dL (31.5-36.5); Mean Corpuscular Volume 94 fL (80-100); Mean Platelet Volume 11.5 fL (9.1-12.4); NRBC ABSOLUTE 0.02 K/mm3 (0.00-0.02); NRBC Auto 0.4 /100 WBC (0.0-0.2); Platelet Count 147 K/mm3 (150-400); RDW Coefficient Variation 14.4 % (11.7-14.2); RDW Standard Deviation 49.8 fL (35.1-46.3); Red Blood Cell Count 2.81 M/mm3 (4.30-5.90); White Blood Cell Count 5.49 K/mm3 (4.00-11.30)
[2021-07-13 04:23] LABS: EOSINOPHILS PERCENT AUTO 0 % (0-6); IMMATURE GRAN ABSOLUTE AUTO 0.05 K/mm3 (0.00-0.10); IMMATURE GRAN PERCENT AUTO 1 % (0-1); NEUTROPHILS ABSOLUTE AUTO 4.85 K/mm3 (1.96-9.15); NEUTROPHILS PERCENT AUTO 88 % (41-73)
[2021-07-13 04:44] LABS: Amylase, Blood 25 U/L (25-115); Magnesium, Blood 2.6 mg/dL (1.6-2.4); Troponin I <0.015 ng/mL (0.000-0.040)
[2021-07-13 04:45] LABS: Alanine Aminotransfer (ALT/SGP 66 U/L (12-78); Albumin, Blood 1.6 g/dL (3.4-5.0); Albumin/Globulin Ratio 0.4 (0.8-1.8); Alk Phos 242 U/L (50-136); Anion Gap 4 mmol/L (6-16); Aspartate Aminotrans (AST/SGOT 50 U/L (12-37); Bilirubin, Total 2.2 mg/dL (0.1-1.0); Blood Urea Nitrogen 29 mg/dL (8-24); C-REACTIVE PROTEIN, EXT RANGE >19.000 mg/dL (0.000-0.300); CO2, Blood 31 mmol/L (21-32); Calcium, Blood 8.5 mg/dL (8.5-10.1); Chloride, Blood 101 mmol/L (98-108); Creatinine, Blood 0.93 mg/dL (0.60-1.20); Glomerular Filtration Rate >60 (60-); Glucose, Blood 175 mg/dL (70-99); Phosphorus, Blood 2.7 mg/dL (2.5-4.9); Potassium, Blood 3.9 mmol/L (3.5-5.5); Sodium, Blood 136 mmol/L (136-145); Total Protein, Blood 5.6 g/dL (6.4-8.2)
--- NOTE | 2021-07-13 06:15 | NUR ---
SHIFT SUMMARY PT IS ALERT AND ORIENTED. PT HAS HAD AN INCREASED HEART RATE WHEN GETTING UP TO BS UP TO HIGH 150'S. PT DENIES CHEST PAIN BUT FEELS WEAK. WHEN PT WAS MEDICATED FOR HEART RATE SUSTAINING >110 PT BP DROPPED WITH NO CHANGES TO HEART RATE. PT HAS BEEN UP TO THE BSC SEVERAL TIMES T/O SHIFT. HE STARTED WITH SOFT STOOLS THAT HAVE BECOME LOOSE. PT HAS REPORTED ABDOMINAL PAIN 04/27 AND WAS MEDICATED PER EMAR. CHAIREZ IS IN PLACE AND DRAINING TO GRAVITY. CALL LIGHT IS WITHIN REACH AND HE USES IT APPROPRIETLY SOME TIMES. BED ALARM IS ACTIVE AND PT WAS EDUCATED ABOUT FALL PREVENTION.
--- NOTE | 2021-07-13 16:39 | NUR ---
ASSUMED CARE OF PATIENT AT APPROX 1150. PT WAKES TO VERBAL STIMULI, ORIENTED x3. QUICKLY FALLS BACK ASLEEP WHEN NOT BEING STIMULATED. PT ABD TENDER ON PALPATION, NO S/SX OF DISTRESS NOTED OTHERWISE. SPO2 >90% ON RA. VSS. NO OTHER ACUTE CHANGES NOTED. REPROT GIVEN TO ASHELY HARPER ASSUMING CARE OF PATIENT AT APPROX 1530.
--- NOTE | 2021-07-13 17:52 | NUR ---
PAtient is alert and oriented x4. Intermittently confused but easily reoriented. Able to get up to bedside commode with a standby assistance. On room air with no distress. Amiodarone BID with Fentanyl patch in place on Right deltoid. BSSR to be given to night time nurse.
[2021-07-14 04:28] LABS: BASOPHILS ABSOLUTE AUTO 0.02 K/mm3 (0.00-0.23); BASOPHILS PERCENT AUTO 0 % (0-2); Hematocrit 25.7 % (37.0-53.0); Hemoglobin 8.6 g/dL (13.5-17.5); LYMPHOCYTES ABSOLUTE AUTO 0.76 K/mm3 (0.84-5.20); LYMPHOCYTES PERCENT AUTO 11 % (21-46); MONOCYTES ABSOLUTE AUTO 0.25 K/mm3 (0.16-1.47); MONOCYTES PERCENT AUTO 4 % (4-13); Mean Corpuscular HGB 31.6 pg (26.0-34.0); Mean Corpuscular HGB Conc 33.5 g/dL (31.5-36.5); Mean Corpuscular Volume 95 fL (80-100); Mean Platelet Volume 11.9 fL (9.1-12.4); NRBC ABSOLUTE 0.02 K/mm3 (0.00-0.02); NRBC Auto 0.3 /100 WBC (0.0-0.2); Platelet Count 109 K/mm3 (150-400); RDW Coefficient Variation 14.2 % (11.7-14.2); RDW Standard Deviation 48.8 fL (35.1-46.3); Red Blood Cell Count 2.72 M/mm3 (4.30-5.90); White Blood Cell Count 6.73 K/mm3 (4.00-11.30)
[2021-07-14 04:29] LABS: EOSINOPHILS ABSOLUTE AUTO 0.01 K/mm3 (0.00-0.68); EOSINOPHILS PERCENT AUTO 0 % (0-6); IMMATURE GRAN ABSOLUTE AUTO 0.06 K/mm3 (0.00-0.10); IMMATURE GRAN PERCENT AUTO 1 % (0-1); NEUTROPHILS ABSOLUTE AUTO 5.63 K/mm3 (1.96-9.15); NEUTROPHILS PERCENT AUTO 84 % (41-73)
[2021-07-14 04:47] LABS: Amylase, Blood 24 U/L (25-115); Magnesium, Blood 2.4 mg/dL (1.6-2.4)
[2021-07-14 04:48] LABS: Alanine Aminotransfer (ALT/SGP 54 U/L (12-78); Albumin, Blood 1.3 g/dL (3.4-5.0); Albumin/Globulin Ratio 0.3 (0.8-1.8); Alk Phos 207 U/L (50-136); Anion Gap 4 mmol/L (6-16); Aspartate Aminotrans (AST/SGOT 48 U/L (12-37); Bilirubin, Total 1.7 mg/dL (0.1-1.0); Blood Urea Nitrogen 22 mg/dL (8-24); Bun/Creatinine Ratio 28.5 (12.0-20.0); CO2, Blood 29 mmol/L (21-32); Chloride, Blood 105 mmol/L (98-108); Creatinine, Blood 0.77 mg/dL (0.60-1.20); Globulin, Blood 3.8 g/dL (2.2-4.0); Glomerular Filtration Rate >60 (60-); Glucose, Blood 122 mg/dL (70-99); Phosphorus, Blood 2.1 mg/dL (2.5-4.9); Potassium, Blood 3.4 mmol/L (3.5-5.5); Sodium, Blood 138 mmol/L (136-145); Total Protein, Blood 5.1 g/dL (6.4-8.2)
--- NOTE | 2021-07-14 06:13 | NUR ---
SHIFT SUMMARY PT A&OX4. SP02>90% ON RA. TELEMETRY READS AFIB, HR 80'S-110'S. SOFT BP AT BEGINNING OF SHIFT. CHAIREZ CATHETER DRIANING YELLOW URINE TO GRAVITY. PT UP TO BSC SBA MULTIPLE TIMES DURING SHIFT TO HAVE LOOSE, BROWN BM. PT C/O OF 8/1O L ABD PAIN, FENTANYL PATCH IN PLACE PER EMAR. PT SLEPT MOST OF NIGHT. FLUIDS INFUSED PER EMAR. CALL LIGHT IN REACH.
--- NOTE | 2021-07-14 16:23 | NUR ---
VERBAL ORDER TAKEN FROM DR. KINSEY VIA TELEPHONE FOR ADDITIONAL PAIN MEDICATION. ORDER ADDED FOR TORADOL 15MG q8 FOR ABD PAIN PER MD ORDER W/ READBACK.
--- NOTE | 2021-07-14 16:50 | NUR ---
ECHOCARDIOGRAM COMPLETE
--- NOTE | 2021-07-14 17:18 | NUR ---
SHIFT NOTE: PT LETHARGIC, BUT ORIENTED. SLEPT MOST OF THE DAY. PT REPORTED PAIN IN ABD. FENTYNL PATCH WAS PLACED 07/13/21 1400. PRN TYLENOL GIVEN, WITH NO RELIEF. NOTIFIED TO GET MORE PRN MEDS. VERBAL ORDER TAKEN FROM DR. KINSEY FOR TORADOL 15MG Q8HR. ONE DOSE GIVEN ON MY SHIFT. CHAIREZ IN PLACE AND DRAINGING WELL. CBG 139-218, SLIDING SCALE USED PER ORDERS WELL LONG ACTING INSULIN GIVEN IN AM. ECHO COMPLETED, PENDING RESULTS. POTASSIUM REPLACED IV. VSS ON RA. BP SLIGHTLY SOFT IN EVENING. NS RUNNING AT 75ML/HR.
[2021-07-15 05:01] LABS: Hematocrit 23.9 % (37.0-53.0); Mean Corpuscular HGB Conc 33.5 g/dL (31.5-36.5); Mean Corpuscular Volume 96 fL (80-100); Mean Platelet Volume 11.9 fL (9.1-12.4); NRBC ABSOLUTE 0.09 K/mm3 (0.00-0.02); NRBC Auto 1.5 /100 WBC (0.0-0.2); Platelet Count 97 K/mm3 (150-400); RDW Coefficient Variation 14.4 % (11.7-14.2); RDW Standard Deviation 50.4 fL (35.1-46.3); White Blood Cell Count 6.08 K/mm3 (4.00-11.30)
[2021-07-15 05:19] LABS: Alanine Aminotransfer (ALT/SGP 48 U/L (12-78); Albumin, Blood 1.2 g/dL (3.4-5.0); Albumin/Globulin Ratio 0.3 (0.8-1.8); Alk Phos 187 U/L (50-136); Anion Gap 4 mmol/L (6-16); Aspartate Aminotrans (AST/SGOT 64 U/L (12-37); Bilirubin, Total 1.1 mg/dL (0.1-1.0); Blood Urea Nitrogen 19 mg/dL (8-24); Bun/Creatinine Ratio 23.6 (12.0-20.0); CO2, Blood 27 mmol/L (21-32); Calcium, Blood 7.6 mg/dL (8.5-10.1); Chloride, Blood 109 mmol/L (98-108); Globulin, Blood 3.5 g/dL (2.2-4.0); Glomerular Filtration Rate >60 (60-); Glucose, Blood 137 mg/dL (70-99); Magnesium, Blood 2.1 mg/dL (1.6-2.4); Phosphorus, Blood 2.4 mg/dL (2.5-4.9); Potassium, Blood 3.2 mmol/L (3.5-5.5); Sodium, Blood 140 mmol/L (136-145); Total Protein, Blood 4.7 g/dL (6.4-8.2); Troponin I <0.015 ng/mL (0.000-0.040)
[2021-07-15 06:12] LABS: BAND PERCENT MAN 4 % (0-8); BASOPHILS PERCENT MAN 0 % (0-2); EOSINOPHILS PERCENT MAN 0 % (0-6); LYMPHOCYTES ABSOLUTE MAN 0.91 K/mm3 (0.84-5.20); LYMPHOCYTES PERCENT MAN 15 % (21-46); MONOCYTES ABSOLUTE MAN 0.12 K/mm3 (0.16-1.47); MONOCYTES PERCENT MAN 2 % (4-13); MYELOCYTE ABSOLUTE MAN 0.24 K/mm3 (0.00-0.00); MYELOCYTE PERCENT MAN 4 % (0-0); SEG NEUTROPHILS PERCENT MAN 75 % (41-73); TOTAL CELLS COUNTED 100
[2021-07-15] MEDS ORDERED: METO50 PO (11:00)
[2021-07-15] MEDS ORDERED: Acetaminophen650 M1 PO (11:07)
[2021-07-15] MEDS ORDERED: ACET120S PR (11:10)
[2021-07-15] MEDS ORDERED: CEFD300 PO (11:11)
[2021-07-15] MEDS ORDERED: Amiodarone HCl200 MG PO (11:11)
[2021-07-15] MEDS ORDERED: FAMO20 PO (11:12)
[2021-07-15] MEDS ORDERED: METO10 PO (11:13)
[2021-07-15] MEDS ORDERED: METR500 PO (11:16)
[2021-07-15] MEDS ORDERED: ONDA4ODT MM (11:17)
[2021-07-15] MEDS ORDERED: VISBIOME 112.51 EACH PO (11:18)
[2021-07-15] MEDS ORDERED: DULCOLAX400 MG/5 M PO (11:24)
[2021-07-15] MEDS ORDERED: BISA10S PR (11:25)
--- NOTE | 2021-07-16 14:42 | NUR ---
will follow up with pt family for support
== END 2021-07-15 13:35 | disposition home or self-care (01) | DRG 871 ==
LOC: ER 14:51 → PCU 18:10
PROVIDERS: Student in an Organized Health Care Education/Training Program; ADMIT Family Medicine
DX: A41.9 Sepsis, unspecified organism (principal); K63.1 Perforation of intestine (nontraumatic); I50.22 Chronic systolic (congestive) heart failure; C25.9 Malignant neoplasm of pancreas, unspecified; I43 Cardiomyopathy in diseases classified elsewhere; I48.19 Other persistent atrial fibrillation; E87.2 Acidosis; J96.10 Chronic respiratory failure, unspecified whether with hypoxia or hypercapnia; Z20.822 Contact with and (suspected) exposure to COVID-19; R65.20 Severe sepsis without septic shock; K59.03 Drug induced constipation; T40.2X5A Adverse effect of other opioids, initial encounter; I11.0 Hypertensive heart disease with heart failure; E78.00 Pure hypercholesterolemia, unspecified; J44.9 Chronic obstructive pulmonary disease, unspecified; G47.33 Obstructive sleep apnea (adult) (pediatric); G89.3 Neoplasm related pain (acute) (chronic); E11.9 Type 2 diabetes mellitus without complications; G89.4 Chronic pain syndrome; M54.9 Dorsalgia, unspecified; D64.9 Anemia, unspecified; R74.01 Elevation of levels of liver transaminase levels; F15.11 Other stimulant abuse, in remission; Z66 Do not resuscitate; Z88.5 Allergy status to narcotic agent; Z79.899 Other long term (current) drug therapy; Z79.01 Long term (current) use of anticoagulants; Z79.4 Long term (current) use of insulin; Z79.891 Long term (current) use of opiate analgesic; Z87.891 Personal history of nicotine dependence
CPT/HCPCS: 0241U; 36415; 51702; 71045; 74019; 74177; 80047; 80053; 80162; 81001; 82150; 82248; 82947; 83605; 83690; 83735; 84100; 84145; 84484; 85014; 85025; 85027; 85610; 85651; 85730; 86140; 86850; 86900; 86901; 87040; 87086; 87493; 93005; 93010; 94640; 94664; 94760; 96365; 96367; 96368; 96375; 96376; 99285-25; A9270; C8929; J0282; J0610; J0696; J1815; J1885; J2405; J2765; J3010; J3475; J3480; J7030; J7060; P9041; Q9957; Q9967

== ENCOUNTER 2021-07-21 02:20 | Day surgery (SDC) | payer OTHER ==
[~2021-07-21 02:20] MED LIST changes: +ACET120S PR; +ADMELOG SC; +Acetaminophen650 M1 PO; +Amiodarone HCl200 MG PO; +BASAGLAR K100 UNIT/3 SC; +BISA10S PR; +CEFD300 PO; +Colace100 MG PO; +DIGOX250 MC1 PO; +DULCOLAX400 MG/5 M PO; +ENTRESTO 24 MG1 EAC2 PO; +FAMO20 PO; +FUROSEMIDE40 MG PO; +METO10 PO; +METO50 PO; +METR500 PO; +MIRALAX17 G3 PO; +ONDA4ODT MM; +OXAYDO5 M1 PO; +Spiriva Respimat INH; +VISBIOME 112.51 EACH PO; +XARELTO10 M1 PO
[2021-07-21 09:05] LABS: BASOPHILS ABSOLUTE AUTO 0.04 K/mm3 (0.00-0.23); BASOPHILS PERCENT AUTO 0 % (0-2); EOSINOPHILS ABSOLUTE AUTO 0.04 K/mm3 (0.00-0.68); EOSINOPHILS PERCENT AUTO 0 % (0-6); Hematocrit 25.5 % (37.0-53.0); Hemoglobin 8.6 g/dL (13.5-17.5); IMMATURE GRAN ABSOLUTE AUTO 0.74 K/mm3 (0.00-0.10); IMMATURE GRAN PERCENT AUTO 6 % (0-1); LYMPHOCYTES ABSOLUTE AUTO 1.53 K/mm3 (0.84-5.20); LYMPHOCYTES PERCENT AUTO 12 % (21-46); MONOCYTES ABSOLUTE AUTO 1.39 K/mm3 (0.16-1.47); MONOCYTES PERCENT AUTO 11 % (4-13); Mean Corpuscular HGB 32.8 pg (26.0-34.0); Mean Corpuscular HGB Conc 33.7 g/dL (31.5-36.5); Mean Corpuscular Volume 97 fL (80-100); Mean Platelet Volume 10.5 fL (9.1-12.4); NEUTROPHILS ABSOLUTE AUTO 9.29 K/mm3 (1.96-9.15); NEUTROPHILS PERCENT AUTO 71 % (41-73); NRBC ABSOLUTE 0.02 K/mm3 (0.00-0.02); NRBC Auto 0.2 /100 WBC (0.0-0.2); Platelet Count 425 K/mm3 (150-400); RDW Coefficient Variation 16.1 % (11.7-14.2); RDW Standard Deviation 53.6 fL (35.1-46.3); Red Blood Cell Count 2.62 M/mm3 (4.30-5.90); White Blood Cell Count 13.03 K/mm3 (4.00-11.30)
[2021-07-21 09:23] LABS: Alanine Aminotransfer (ALT/SGP 109 U/L (12-78); Albumin, Blood 1.9 g/dL (3.4-5.0); Albumin/Globulin Ratio 0.5 (0.8-1.8); Alk Phos 301 U/L (50-136); Anion Gap 7 mmol/L (6-16); Aspartate Aminotrans (AST/SGOT 93 U/L (12-37); Blood Urea Nitrogen 15 mg/dL (8-24); Bun/Creatinine Ratio 16.6 (12.0-20.0); CO2, Blood 28 mmol/L (21-32); Calcium, Blood 8.2 mg/dL (8.5-10.1); Chloride, Blood 102 mmol/L (98-108); Creatinine, Blood 0.91 mg/dL (0.60-1.20); Globulin, Blood 3.7 g/dL (2.2-4.0); Glomerular Filtration Rate >60 (60-); Glucose, Blood 120 mg/dL (70-99); Potassium, Blood 3.8 mmol/L (3.5-5.5); Sodium, Blood 137 mmol/L (136-145); Total Protein, Blood 5.6 g/dL (6.4-8.2)
== END 2021-07-21 09:00 | disposition home or self-care (01) ==
LOC: ATC 02:20
PROVIDERS: Internal Medicine Hematology & Oncology
DX: C25.1 Malignant neoplasm of body of pancreas (principal)
CPT/HCPCS: 36592; 80053; 85025; 86301

== ENCOUNTER 2021-07-28 10:25 | Day surgery (SDC) | payer OTHER ==
[2021-07-28] MEDS ORDERED: FENTANYL PATCH TOP (11:54)
[2021-07-28 12:59] LABS: Alanine Aminotransfer (ALT/SGP 91 U/L (12-78); Albumin, Blood 2.2 g/dL (3.4-5.0); Albumin/Globulin Ratio 0.5 (0.8-1.8); Alk Phos 243 U/L (50-136); Anion Gap 9 mmol/L (6-16); Aspartate Aminotrans (AST/SGOT 69 U/L (12-37); Bilirubin, Total 0.8 mg/dL (0.1-1.0); Blood Urea Nitrogen 12 mg/dL (8-24); CO2, Blood 23 mmol/L (21-32); Calcium, Blood 8.5 mg/dL (8.5-10.1); Chloride, Blood 106 mmol/L (98-108); Creatinine, Blood 0.86 mg/dL (0.60-1.20); Globulin, Blood 4.1 g/dL (2.2-4.0); Glomerular Filtration Rate >60 (60-); Glucose, Blood 138 mg/dL (70-99); Potassium, Blood 3.7 mmol/L (3.5-5.5); Sodium, Blood 138 mmol/L (136-145); Total Protein, Blood 6.3 g/dL (6.4-8.2)
== END 2021-07-28 10:47 | disposition home or self-care (01) ==
LOC: ATC 10:25
PROVIDERS: Internal Medicine Hematology & Oncology
DX: C25.1 Malignant neoplasm of body of pancreas (principal); I11.0 Hypertensive heart disease with heart failure; I50.22 Chronic systolic (congestive) heart failure; E78.5 Hyperlipidemia, unspecified; G47.33 Obstructive sleep apnea (adult) (pediatric); J44.9 Chronic obstructive pulmonary disease, unspecified; I48.91 Unspecified atrial fibrillation; Z79.01 Long term (current) use of anticoagulants; Z79.899 Other long term (current) drug therapy
CPT/HCPCS: 36592; 80053

== ENCOUNTER 2021-08-03 03:14 | Day surgery (SDC) | payer OTHER ==
[~2021-08-03 03:14] MED LIST changes: +FENTANYL PATCH TOP
[2021-08-07] MEDS ORDERED: PROM12.5S PR (14:05)
== END 2021-08-03 11:45 | disposition home or self-care (01) ==
LOC: ATC 03:14
DX: C25.1 Malignant neoplasm of body of pancreas (principal); I11.0 Hypertensive heart disease with heart failure; I50.22 Chronic systolic (congestive) heart failure; J44.9 Chronic obstructive pulmonary disease, unspecified; Z88.5 Allergy status to narcotic agent; Z87.891 Personal history of nicotine dependence
CPT/HCPCS: 99211

== ENCOUNTER 2021-08-28 10:25 | Day surgery (SDC) | payer OTHER ==
[~2021-08-28 10:25] MED LIST changes: +PROM12.5S PR
== END 2021-08-28 11:13 | disposition home or self-care (01) ==
LOC: ATC 10:25
DX: C25.1 Malignant neoplasm of body of pancreas (principal); I11.0 Hypertensive heart disease with heart failure; I50.22 Chronic systolic (congestive) heart failure; E78.5 Hyperlipidemia, unspecified; G47.33 Obstructive sleep apnea (adult) (pediatric); J44.9 Chronic obstructive pulmonary disease, unspecified; I48.91 Unspecified atrial fibrillation; Z88.8 Allergy status to other drugs, medicaments and biological substances; Z79.899 Other long term (current) drug therapy
CPT/HCPCS: 99211

== ENCOUNTER 2021-09-07 12:30 | Day surgery (SDC) | payer OTHER | END 2021-09-07 15:10 | disposition home or self-care (01) | LOC: ATC 12:30 | DX: C25.1 Malignant neoplasm of body of pancreas (principal); I11.0 Hypertensive heart disease with heart failure; I50.22 Chronic systolic (congestive) heart failure; J44.9 Chronic obstructive pulmonary disease, unspecified; G47.33 Obstructive sleep apnea (adult) (pediatric); Z88.8 Allergy status to other drugs, medicaments and biological substances; Z87.891 Personal history of nicotine dependence | CPT/HCPCS: 99211 ==